=== PATIENT | female | born 1995 | race Caucasian/White ===

== ENCOUNTER 2018-09-25 23:24 | Emergency (ER) | payer BC ==
--- NOTE | 2018-09-26 00:31 | ER Document Report ---
ED Medical Screen (RME) - General Chief Complaint: Abdominal Pain Stated Complaint: ABDOMINAL PAIN Time Seen by Provider: 09/26/18 00:28 Notes: 23-year-old female chief complaint of pelvic cramping, she states initially she thought she had a yeast infection, started applying Monistat, states that then she started bleeding and it started burning, then she started having additional cramping. Denies vomiting, fever. She is on oral contraceptive, she is sexually active. TRAVEL OUTSIDE OF THE [place] IN LAST 30 DAYS: No Physical Exam - Vital signs Vitals: Temp Pulse Resp BP Pulse Ox 98.4 F 85 20 134/84 H 100 09/26/18 00:12 09/26/18 00:12 09/26/18 00:12 09/26/18 00:12 09/26/18 00:12 - Abdominal Tenderness: Tender - Nonspecific lower abdominal/pelvic pain without guarding, upper abdomen is benign Course - Re-evaluation Re-evalutation: I have greeted and performed a rapid initial assessment of this patient. A comprehensive ED assessment and evaluation of the patient, analysis of test results and completion of the medical decision making process will be conducted by additional ED providers. - Vital Signs Vital signs: Temp Pulse Resp BP Pulse Ox 98.4 F 85 20 134/84 H 100 09/26/18 00:12 09/26/18 00:12 09/26/18 00:12 09/26/18 00:12 09/26/18 00:12
[2018-09-26 01:03] LABS: APPEARANCE,URINE CLEAR; BILIRUBIN,URINE NEGATIVE (NEGATIVE); COLOR,URINE STRAW; GLUCOSE, URINE NEGATIVE (NEGATIVE); KETONES,URINE NEGATIVE (NEGATIVE); LEUKOCYTE ESTERASE,URINE TRACE (NEGATIVE); NITRITE,URINE NEGATIVE (NEGATIVE); PROTEIN,URINE NEGATIVE (NEGATIVE); URINE SPECIFIC GRAVITY 1.004; UROBILINOGEN,URINE NEGATIVE mg/dL (<2.0)
[2018-09-26] MEDS ORDERED: ONDANSETRON 4 MG TAB.RAPDIS PO ONE (02:23)
[2018-09-26] MEDS ORDERED: OXYCODONE-ACETAMINOPHEN 5-325 MG TABLET PO ONE (02:23)
--- NOTE | 2018-09-26 02:29 | ER Document Report ---
ED GI/ - General Chief Complaint: Abdominal Pain Stated Complaint: ABDOMINAL PAIN Time Seen by Provider: 09/26/18 00:28 Notes: Patient is a 23-year-old female chief that comes to the Emergency Department for chief complaint of pelvic cramping, she states initially she thought she had a yeast infection, started applying Monistat, states that then she started bleeding and it started burning, then she started having additional cramping. Denies vomiting, fever. She is on oral contraceptive, she is sexually active. TRAVEL OUTSIDE OF THE [place] IN LAST 30 DAYS: No - Related Data Allergies/Adverse Reactions: No Known Allergies Allergy (Unverified 09/26/18 03:43) Past Medical History - General Information source: Patient - Social History Smoking Status: Never Smoker Frequency of alcohol use: None Drug Abuse: None Lives with: Family Family History: Reviewed & Not Pertinent - Medical History Medical History: Negative Surgical Hx: Negative - Immunizations Immunizations up to date: Yes Hx Diphtheria, Pertussis, Tetanus Vaccination: Yes Review of Systems - Review of Systems Constitutional: No symptoms reported EENT: No symptoms reported Cardiovascular: No symptoms reported Respiratory: No symptoms reported Gastrointestinal: See HPI Genitourinary: See HPI Female Genitourinary: See HPI Musculoskeletal: No symptoms reported Skin: No symptoms reported Hematologic/Lymphatic: No symptoms reported Neurological/Psychological: No symptoms reported Physical Exam - Vital signs Vitals: Temp Pulse Resp BP Pulse Ox 98.4 F 85 20 134/84 H 100 09/26/18 00:12 09/26/18 00:12 09/26/18 00:12 09/26/18 00:12 09/26/18 00:12 - Notes Notes: GENERAL: Alert, interacts well. No acute distress. HEAD: Normocephalic, atraumatic. EYES: Pupils equal, round, and reactive to light. Extraocular movements intact. ENT: Oral mucosa moist, tongue midline. Oropharynx unremarkable. Airway patent. Nares patent, no nasal septal hematoma, TM's intact. NECK: Full range of motion. Supple. Trachea midline. LUNGS: Clear to auscultation bilaterally, no wheezes, rales, or rhonchi. No respiratory distress. HEART: Regular rate and rhythm. No murmur ABDOMEN: Mild tenderness over the abdominal/pelvic area bilaterally without guarding. Non-distended. Bowel sounds present in all 4 quadrants. GENITOURINARY: External exam with no concerning findings, speculum exam showing moderately large amount of yellowish-greenish discharge, no lesions noted, there is cervical motion tenderness but this is not severe. Exam performed with Jen PCT at bedside. EXTREMITIES: Moves all 4 extremities spontaneously. No edema, normal radial and dorsalis pedis pulses bilaterally. No cyanosis. BACK: no cervical, thoracic, lumbar midline tenderness. No saddle anesthesia, normal distal neurovascular exam. NEUROLOGICAL: Alert and oriented x3. Normal speech. [cranial nerves II through XII grossly intact]. PSYCH: Normal affect, normal mood. SKIN: Warm, dry, normal turgor. No rashes or lesions noted. Course - Re-evaluation Re-evalutation: Patient does have pelvic tenderness and discharge suggesting PID. She is afebrile, not tachycardic, not hypotensive, well-appearing. Her abdomen is actually benign with only mild tenderness. test negative, urine unremarkable. Wet mount is surprisingly benign despite patient's exam, only a few white blood cells, negative trichomonas, otherwise unremarkable. Gonorrhea negative, chlamydia is positive. This is consistent with patient's exam. I discussed with patient, discussed treatment, recommendations, follow-up, and return precautions. Patient states understanding and agreement. - Vital Signs Vital signs: Temp Pulse Resp BP Pulse Ox 98.2 F 81 20 135/75 H 100 09/26/18 03:43 09/26/18 03:43 09/26/18 03:43 09/26/18 03:43 09/26/18 03:43 - Laboratory Laboratory results interpreted by me: 09/26/18 09/26/18 00:40 00:40 Ur Leukocyte Esterase TRACE H Chlamydia DNA (PCR) DETECTED H Discharge - Discharge Clinical Impression: Pelvic pain, Vaginal discharge Condition: Stable Disposition: HOME, SELF-CARE Additional Instructions: Your work-up indicates a pelvic infection, you have chlamydia which is an STD. You have been treated for this. Sexual partner(s) also need to be treated for this. Avoid sexual intercourse/contact for 1 week. Follow-up with primary care. Return for any concerning symptoms including severe abdominal pain, vomiting, fever, or any other concerning symptoms.
[2018-09-26 02:52] LABS: RBCS (WET MOUNT) 2+ RBCS SEEN; T.VAGINALIS (WET MOUNT) NO TRICHOMONAS SEEN; WBCS (WET MOUNT) FEW WBCS SEEN; YEAST (WET MOUNT) NO YEAST SEEN
[2018-09-26 03:10] LABS: CHLAM PCR DETECTED (NOT DETECT); GON PCR NOT DETECTED (NOT DETECT)
[2018-09-26] MEDS ORDERED: LIDOCAINE 1% INJ-PF (10 MG/ML) 30 ML SDV INJ ONE (03:20)
[2018-09-26] MEDS ORDERED: CEFTRIAXONE INJ 250 MG VIAL IM ONE (03:20)
[2018-09-26] MEDS ORDERED: AZITHROMYCIN 250 MG TABLET PO ONE (03:20)
[2018-09-26 03:44] VITALS: BP 135/75
== END 2018-09-26 03:50 | disposition home or self-care (01) ==
LOC: ER 23:24
DX: R10.2 Pelvic and perineal pain (principal); N89.8 Other specified noninflammatory disorders of vagina; R10.9 Unspecified abdominal pain
CPT/HCPCS: 99284; 96372; 87210; 81025; 81001; 87491; 87591; S0119; J3490; J0696